=== PATIENT | female | born 1935 | race Caucasian/White ===

== ENCOUNTER 2024-03-14 12:01 | Observation (INO) | payer MEDICARE ==
[~2024-03-14] VITALS: Ht 149.9 cm; Wt 47.4 kg
[2024-03-14 12:37] LABS: BASOPHILS ABSOLUTE AUTO 0.04 K/mm3 (0.00-0.23); BASOPHILS PERCENT AUTO 1 % (0-2); EOSINOPHILS ABSOLUTE AUTO 0.04 K/mm3 (0.00-0.68); EOSINOPHILS PERCENT AUTO 1 % (0-6); Hematocrit 43.6 % (33.0-51.0); Hemoglobin 14.8 g/dL (11.5-16.0); IMMATURE GRAN ABSOLUTE AUTO 0.02 K/mm3 (0.00-0.10); IMMATURE GRAN PERCENT AUTO 0 % (0-1); LYMPHOCYTES ABSOLUTE AUTO 1.08 K/mm3 (0.84-5.20); LYMPHOCYTES PERCENT AUTO 15 % (21-46); MONOCYTES ABSOLUTE AUTO 0.69 K/mm3 (0.16-1.47); MONOCYTES PERCENT AUTO 10 % (4-13); Mean Corpuscular HGB 30.1 pg (26.0-34.0); Mean Corpuscular HGB Conc 33.9 g/dL (31.5-36.5); Mean Corpuscular Volume 89 fL (80-100); Mean Platelet Volume 8.7 fL (9.1-12.4); NEUTROPHILS ABSOLUTE AUTO 5.39 K/mm3 (1.96-9.15); NEUTROPHILS PERCENT AUTO 74 % (41-73); Platelet Count 242 K/mm3 (150-400); RDW Coefficient Variation 13.3 % (11.7-14.2); RDW Standard Deviation 43.4 fL (35.1-46.3); Red Blood Cell Count 4.91 M/mm3 (3.80-5.20); White Blood Cell Count 7.26 K/mm3 (4.00-11.30)
[2024-03-14 13:02] LABS: Albumin, Blood 3.7 g/dL (3.4-5.0); Albumin/Globulin Ratio 1.2 (0.8-1.8); Bilirubin, Total 1.3 mg/dL (0.1-1.0); Bun/Creatinine Ratio 22.9 (12.0-20.0); Calcium, Blood 9.9 mg/dL (8.5-10.1); Creatinine, Blood 0.53 mg/dL (0.40-1.00); Globulin, Blood 3.1 g/dL (2.2-4.0); Potassium, Blood 3.4 mmol/L (3.5-5.5); Total Protein, Blood 6.8 g/dL (6.4-8.2)
[2024-03-14] MEDS ORDERED: NS 1,000 ML IV SCH ×2 (15:05→18:00)
[2024-03-14 16:05] LABS: Source, Urine Straight Cath
[2024-03-14 16:09] LABS: Appearance, Urine Cloudy (Clear); Blood, Urine 1+ (Neg); Glucose Qualitative, Urine Neg (Neg); Ketones, Urine 2+ (Neg); Leukocyte Esterase, Urine 3+ (Neg); Nitrite, Urine Neg (Neg); Protein, Urine 2+ (Neg); Urobilinogen, Urine 2+ (Normal)
[2024-03-14 16:24] LABS: Bilirubin, Urine 1+ (Neg); Color, Urine Amber (P-Yellow)
[2024-03-14 16:27] LABS: Bacteria Many /hpf; Calcium Oxalate Crystals Many /hpf; Hyaline Casts 0-2 /lpf (0-2); Red Blood Cells, Urine 0-2 /hpf (0-2); Squamous Epithelial Cells Mod /hpf (Few); White Blood Cells, Urine 25-50 /hpf (0-5)
[2024-03-14] MEDS ORDERED: CefTRIAXone Sodium 1,000 MG in NS 100 ML IV ONE (16:35)
[2024-03-14] MEDS ORDERED: AMLODIPINE BESYL5 MG PO (17:03)
[2024-03-14] MEDS ORDERED: CARBIDOPA-LEVO1 EA15 PO (17:03)
[2024-03-14] MEDS ORDERED: OMEP20ER PO (17:04)
[2024-03-14] MEDS ORDERED: FLUTICASONE PRO16 GM (17:04)
[2024-03-14] MEDS ORDERED: HYDCHL25 PO (17:04)
[2024-03-14] MEDS ORDERED: LOSA50 PO (17:05)
[2024-03-14] MEDS ORDERED: Levodopa/Carbidopa 100 / 25 MG Tab PO ONE ×2 (17:05→18:05)
[2024-03-14] MEDS ORDERED: ZOCOR20 MG PO (17:05)
[2024-03-14] MEDS ORDERED: METO50ER PO (17:05)
[2024-03-14] MEDS ORDERED: LATANOPROST2.5 M3 BOTHEYES (17:06)
[2024-03-14] MEDS ORDERED: Potassium Chloride 20 MEQ TabCR PO ONE (18:00)
[2024-03-14] MEDS ORDERED: TraZODone HCl 50 MG Tab PO ONE (20:35)
[2024-03-14] MEDS ORDERED: Haloperidol Lactate Inj. 5 MG/ML Injection IV PRN (20:50)
[2024-03-14] MEDS ORDERED: Haloperidol Lactate Inj. 5 MG/ML Injection IV ONE (20:50)
[2024-03-14] MEDS ORDERED: Levodopa/Carbidopa 250 / 25 MG 1 Tab PO SCH (21:00)
[2024-03-14] MEDS ORDERED: Lactobacil 2-S.Thermo-Bifido 1 1 Cap PO SCH (21:00)
--- NOTE | 2024-03-14 22:50 | NUR ---
PT CONFUSED AND PARANOID. UNABLE TO BE REDIRECTED OR REASSURED. PT BELIEVED SHE WAS AT HER HOME AND WAS TELLING STAFF TO GET OUT AND TO STAY AWAY FROM HER. ATTEMPTS TO ASSIST HER TO THE BATHROOM OR BACK TO BED WERE UNSUCCESSFUL. PT'S DAUGHTER, MARY, WAS CALLED TO SEE IF SHE MIGHT BE ABLE TO TALK WITH PT. MARY STATED THIS WAS THE REASON SHE WAS BROUGHT IN AND THEY HAVE BEEN UNABLE TO REASON WITH HER. SECURITY WAS CALLED AND THEY WERE ABLE TO ASSIST PT BACK TO BED. PT WAS ATTEMPTING TO HIT, BITE AND KICK STAFF. IN THE PROCESS, PT GOT A SMALL SKIN TEAR ON LEFT FOREARM, THAT WAS LIKELY D/T PT SQUEEZING HERSELF BETWEEN THE BED AND WALL TO GET AWAY FROM STAFF. DRESSING AND COBAN PLACED. BED ALARM AND VEST RESTRAINT IN PLACE. HOSPITALIST CALLED AND ORDERS GIVEN. PT ALSO GIVEN IV HALDOL BY BREAK NURSE. PT THEN PULLED IV OUT AFTER BREAK NURSE LEFT ROOM. FAMILY NOTIFED THAT PT IS IN VEST RESTRAINT. CURRENTLY PT IS IN BED RESTING. RESPIRATONS EVEN AND UNLABORED. BED ALARM ON.
[2024-03-15 02:12] VITALS: BP 148/62
[2024-03-15 04:43] LABS: Base Excess Venous 4.9 mmol/L; Bicarbonate Venous 28.5 mmol/L (24.0-30.0); PCO2 Venous 40.2 mmHg (38-42); pH Blood Venous 7.46 (7.34-7.37)
--- NOTE | 2024-03-15 05:04 | NUR ---
SHIFT SUMMARY PT ALERT TO SELF. PT PLEASANTLY CONFUSED WHEN FIRST COMING TO FLOOR HOWEVER AROUND 2014 PT BECAME MORE CONFUSED AND PARANOID. PT WAS ATTEMPTING TO HIT, BITE, AND KICK STAFF. SECURITY WAS CALLED AND PT WAS PLACED IN A VEST RESTRAINT. (SEE EARLIER NOTE). PT WAS GIVEN 2.5MG OF HALDOL AND PT WAS ABLE TO SLEEP THE REST OF THE NIGHT. NEW IV PLACED. PT BLADDER SCANED AROUND 0200 AND 217mls WAS NOTED IN BLADDER. PT WOULD NOT TAKE EVENING ORAL MEDICATIONS D/T AGITATION AND PARANOIA. BED ALARM ON. BED IN LOWEST POSITION AND CALL LIGHT IN REACH.
[2024-03-15 05:31] LABS: BASOPHILS ABSOLUTE AUTO 0.06 K/mm3 (0.00-0.23); BASOPHILS PERCENT AUTO 1 % (0-2); EOSINOPHILS ABSOLUTE AUTO 0.07 K/mm3 (0.00-0.68); EOSINOPHILS PERCENT AUTO 1 % (0-6); Hematocrit 39.6 % (33.0-51.0); Hemoglobin 13.4 g/dL (11.5-16.0); IMMATURE GRAN ABSOLUTE AUTO 0.07 K/mm3 (0.00-0.10); IMMATURE GRAN PERCENT AUTO 1 % (0-1); LYMPHOCYTES ABSOLUTE AUTO 0.99 K/mm3 (0.84-5.20); LYMPHOCYTES PERCENT AUTO 12 % (21-46); MONOCYTES ABSOLUTE AUTO 0.74 K/mm3 (0.16-1.47); MONOCYTES PERCENT AUTO 9 % (4-13); Mean Corpuscular HGB 30.4 pg (26.0-34.0); Mean Corpuscular HGB Conc 33.8 g/dL (31.5-36.5); Mean Corpuscular Volume 90 fL (80-100); Mean Platelet Volume 9.4 fL (9.1-12.4); NEUTROPHILS ABSOLUTE AUTO 6.15 K/mm3 (1.96-9.15); NEUTROPHILS PERCENT AUTO 76 % (41-73); Platelet Count 207 K/mm3 (150-400); RDW Coefficient Variation 13.6 % (11.7-14.2); RDW Standard Deviation 44.5 fL (35.1-46.3); Red Blood Cell Count 4.41 M/mm3 (3.80-5.20); White Blood Cell Count 8.08 K/mm3 (4.00-11.30)
[2024-03-15] MEDS ORDERED: NS 250 ML IV PRN (05:35)
[2024-03-15 05:54] LABS: Bun/Creatinine Ratio 22.4 (12.0-20.0); Calcium, Blood 9.1 mg/dL (8.5-10.1); Creatinine, Blood 0.54 mg/dL (0.40-1.00); Potassium, Blood 3.4 mmol/L (3.5-5.5)
[2024-03-15 06:56] VITALS: BP 188/65
--- NOTE | 2024-03-15 08:06 | NUR ---
SPOKE WITH MD ROJO TELEPHONE CALLED THIS AM TO INFORM HIM OF PATIENT SBP 188. NO PRNs AT THIS TIME. ALSO REQUESTED A SPEECH EVAL FOR DIET ORDER DUE TO PATIENT'S HISTORY OF ESOPHAGEAL STRICTURE. MD STATES WILL PLACE ORDERS.
[2024-03-15] MEDS ORDERED: HydrALAZINE HCl 20 MG / ML 1ML Vial IV PRN (08:10)
[2024-03-15] MEDS ORDERED: Enoxaparin 40 MG/0.4 ML SYR SC SCH (09:00)
[2024-03-15 09:55] VITALS: BP 148/62
--- NOTE | 2024-03-15 10:44 | NUR ---
PATIENT REMOVED FROM RESTRAINTS PATIENT PLEASANT AND COOPERATIVE, A/OX3. PATIENT REMOVED FROM [place] VEST AT 1000. WILL CONTINUE TO MONITOR.
[2024-03-15] MEDS ORDERED: Potassium Chloride 20 MEQ TabCR PO ONE (12:40)
[2024-03-15] MEDS ORDERED: CIPR500 PO (13:21)
[2024-03-15] MEDS ORDERED: VISBIOME 112.51 EACH PO (13:21)
--- NOTE | 2024-03-15 14:39 | NUR ---
DISCHARGE NOTE PATIENT A/OX3 THIS SHIFT, ABLE TO MAKE NEEDS KNOWN. RESRAINTS DISCONTINUED THIS AM AT 1000. PATIENT PLEASANT AND COOPERATIVE WITH STAFF. SBP ELEVATED THIS AM, PRN HYDRALAZINE EFFECTIVE. STAND BY ASSIST PER PHYSICAL THERAPY ASSESSMENT THIS AM. PIV REMOVED PRIOR TO DISCHARGE. PATIENT AND FAMILY WITH NO CONCERNS AT TIME OF DISCHARGE. DISCHARGE PAPEROWRK COMPLETED AND PATIENT ASSISTED TO FAMILY VEHICLE VIA WHEELCHAIR.
[2024-03-15] MEDS ORDERED: CefTRIAXone Sodium 1,000 MG in NS 100 ML IV SCH (18:00)
[2024-03-15] MEDS ORDERED: TraZODone HCl 50 MG Tab PO SCH (19:00)
[2024-03-15] MEDS ORDERED: Donepezil HCl 5 MG Tab PO SCH (21:00)
[2024-03-16] MEDS ORDERED: Enoxaparin 30 MG/0.3 ML SYR SC SCH (09:00)
[2024-03-18 19:34] LABS: CK TOTAL 64 U/L (26-192); CK-BB 0 % (0-0); CK-MACRO TYPE I 0 % (0-0); CK-MACRO TYPE II 0 % (0-0); CK-MB 0 % (0-4); CK-MM 100 % (96-100)
== END 2024-03-15 14:40 | disposition home or self-care (01) ==
LOC: ER 12:01 → MEDS 12:02 → ENPENDDIS 03-15 12:43 → MEDS 03-15 14:40
PROVIDERS: Physician Assistant; ADMIT Family Medicine
DX: N39.0 Urinary tract infection, site not specified (principal); G92.8 Other toxic encephalopathy; E86.0 Dehydration; E87.6 Hypokalemia; G20.A1 Parkinson's disease without dyskinesia, without mention of fluctuations; S32.9XXA Fracture of unspecified parts of lumbosacral spine and pelvis, initial encounter for closed fracture; X58.XXXA Exposure to other specified factors, initial encounter; Z66 Do not resuscitate; Z88.1 Allergy status to other antibiotic agents; Z79.899 Other long term (current) drug therapy
CPT/HCPCS: 36415; 70450; 71046; 80048; 80053; 81001; 82550; 82552; 82803; 83735; 84100; 84443; 85025; 87077; 87086; 87186; 96365; 96372; 96375; 97110; 97162; 97165; 97530; 97535; 99285-25; A9270; G0378; J0360; J0696; J1630; J1650; J7030; J7050

== ENCOUNTER 2024-06-17 06:08 | Emergency (ER) | payer MEDICARE ==
[~2024-06-17] VITALS: Ht 147.3 cm; Wt 45.4 kg
[~2024-06-17 06:08] MED LIST: AMLODIPINE BESYL5 MG PO; CARBIDOPA-LEVO1 EA15 PO; CIPR500 PO; FLUTICASONE PRO16 GM; HYDCHL25 PO; LATANOPROST2.5 M3 BOTHEYES; LOSA50 PO; METO50ER PO; OMEP20ER PO; VISBIOME 112.51 EACH PO; ZOCOR20 MG PO
[2024-06-17] MEDS ORDERED: Acetaminophen 500 MG Tab PO ONE (06:25)
[2024-06-17] MEDS ORDERED: Ketorolac Tromethamine 15mg Vial IV ONE (06:25)
[2024-06-17] MEDS ORDERED: Ibuprofen 400 MG Tab PO ONE (07:30)
[2024-06-17 08:22] LABS: Source, Urine Clean Catch
[2024-06-17 08:37] LABS: Appearance, Urine Clear (Clear); Bilirubin, Urine Neg (Neg); Blood, Urine 1+ (Neg); Color, Urine Yellow (P-Yellow); Glucose Qualitative, Urine Neg (Neg); Ketones, Urine Neg (Neg); Leukocyte Esterase, Urine Neg (Neg); Nitrite, Urine Neg (Neg); Protein, Urine Neg (Neg); Specific Gravity, Urine 1.015 (1.003-1.022); Urobilinogen, Urine NORM (Normal)
[2024-06-17 08:45] LABS: White Blood Cells, Urine 0-2 /hpf (0-5)
[2024-06-17 08:46] LABS: Bacteria Rare /hpf; Red Blood Cells, Urine 0-2 /hpf (0-2); Squamous Epithelial Cells Few /hpf (Few)
== END 2024-06-17 09:51 | disposition home or self-care (01) ==
LOC: ER 06:08
PROVIDERS: Emergency Medicine
DX: S39.012A Strain of muscle, fascia and tendon of lower back, initial encounter (principal); G20.A1 Parkinson's disease without dyskinesia, without mention of fluctuations; I10 Essential (primary) hypertension; Z88.1 Allergy status to other antibiotic agents; Z91.012 Allergy to eggs; Z79.899 Other long term (current) drug therapy; W18.39XA Other fall on same level, initial encounter
CPT/HCPCS: 72100; 81001; 99284-25; A9270; J1885